=== PATIENT | male | born 1995 ===

== ENCOUNTER 2018-12-11 11:18 | Emergency (ER) | payer BC ==
[~2018-12-11] VITALS: Ht 182.9 cm; Wt 87.5 kg
[2018-12-11 12:14] VITALS: BP 145/83
[2018-12-11] MEDS ORDERED: NEOMYCIN/POLYMYX/BACITR OINT 0.9 GM PKT TOP ONE (12:30)
== END 2018-12-11 12:37 | disposition home or self-care (01) ==
LOC: ER 11:18
DX: L02.512 Cutaneous abscess of left hand (principal)
CPT/HCPCS: 99283